=== PATIENT | male | born 1985 | race Caucasian/White ===

== ENCOUNTER 2022-09-15 20:34 | Emergency (ER) | payer BC, MEDICARE ==
[2022-09-15] MEDS ORDERED: Albuterol/Ipratropium 3.0-0.5 MG/3 ML Neb Soln NEB PRN (21:38)
[2022-09-15] MEDS ORDERED: Furosemide 40 MG/4 ML VIAL IVPUSH ONE (22:10)
[2022-09-16] MEDS ORDERED: Aspirin 81 MG Tab.Chew PO ONE (00:33)
[2022-09-16] MEDS ORDERED: Heparin Sodium 5,000 Units/ML Vial IVPUSH ONE (00:33)
[2022-09-16] MEDS ORDERED: Heparin Sodium/D5W 25,000 UNITS/500 ML BAG IV SCH (00:45)
[2022-09-16] MEDS ORDERED: Nitroglycerin/D5W 25 MG/250 ML BOTTLE IV SCH (00:45)
[2022-09-16] MEDS ORDERED: Iopamidol 755 Mg/ML 100 ML Bottle IVPUSH ONE (02:32)
[2022-09-16 02:49] LABS: CORONAVIRUS COVID-19 NAA NEGATIVE (NEGATIVE)
== END 2022-09-16 03:30 ==
LOC: JD.ED 20:34
DX: I27.0 Primary pulmonary hypertension (principal); R06.02 Shortness of breath; R09.02 Hypoxemia; R77.8 Other specified abnormalities of plasma proteins; Z79.899 Other long term (current) drug therapy; Z86.16 Personal history of COVID-19; Z95.5 Presence of coronary angioplasty implant and graft; Z20.822 Contact with and (suspected) exposure to COVID-19
CPT/HCPCS: 0241U; 36415; 71045; 71045-26; 71275; 71275-26; 80053; 82553; 83735; 83880; 84484; 85025; 85610; 85730; 86140; 93005; 93010; 96365; 96366; 96375; 96376; 99285; 99285-25; A9270-GY; J1644; J1940; Q9967

== ENCOUNTER 2023-01-04 01:40 | Emergency (ER) | payer MEDICARE ==
[2023-01-04 02:57] LABS: BASOPHILS ABSOLUTE AUTO 0.01 K/mm3 (0.01-0.08); BASOPHILS PERCENT AUTO 0.1 % (0.1-1.2); EOSINOPHILS PERCENT AUTO 1.2 (0.8-7.0); HEMATOCRIT 43.6 % (40.1-51.0); IMMATURE GRAN ABSOLUTE AUTO 0.02 K/mm3 (0.00-0.10); IMMATURE GRAN PERCENT AUTO 0.2 % (<=1.0); LYMPHOCYTES PERCENT AUTO 19.5 % (21.8-53.1); MEAN CORPUSCULAR HEMOGLOBIN 26.7 pg (25.7-32.2); MEAN CORPUSCULAR HGB CONC 32.8 g/dl (32.2-35.5); MEAN CORPUSCULAR VOLUME 81.3 fl (79.0-92.2); MEAN PLATELET VOLUME 8.5 fl (9.4-12.3); MONOCYTES PERCENT AUTO 8.5 % (5.3-12.2); NEUTROPHILS ABSOLUTE AUTO 5.76 K/mm3 (1.78-5.38); NEUTROPHILS PERCENT AUTO 70.5 % (34.0-67.9); PLATELET COUNT,PLT 265 K/mm3 (163-337); RED BLOOD CELL COUNT 5.36 M/mm3 (4.63-6.08); WHITE BLOOD CELL COUNT,WBC 8.19 K/mm3 (4.23-9.07)
[2023-01-04 03:04] LABS: HEMOGLOBIN 14.3 gm/dl (13.7-17.5)
[2023-01-04 03:25] LABS: A/G RATIO 1.1 (1-2); ALBUMIN 3.1 g/dl (3.4-5.0); ANION GAP 13.1 (5-15); BILIRUBIN TOTAL 0.9 mg/dL (0.2-1.0); BUN/CREATININE RATIO 11.7 (14-18); CALCIUM 8.2 mg/dL (8.5-10.1); CREATININE 1.2 mg/dL (0.7-1.3); EST CRCL DRUG DOSING (CG) 74.58 mL/min; POTASSIUM,K 3.1 mEq/L (3.5-5.1)
[2023-01-04] MEDS ORDERED: Potassium Chloride 20 MEQ Tab.ER PO ONE (04:52)
[2023-01-04] MEDS ORDERED: cefTRIAXone 1 GM in Sodium Chloride 0.9% 100 ML IV ONE (04:52)
[2023-01-04] MEDS ORDERED: Albuterol/Ipratropium 3.0-0.5 MG/3 ML Neb Soln NEB ONE ×2 (04:53→08:35)
[2023-01-04] MEDS ORDERED: Azithromycin 500 MG in Sodium Chloride 0.9% 250 ML IV ONE (05:09)
[2023-01-04] MEDS ORDERED: Albuterol 0.083% 2.5 MG/3 ML Neb Soln NEB ONE (06:43)
[2023-01-04] MEDS ORDERED: methylPREDNISolone Sodium Succinate 125 MG/2 ML SDV IVPUSH ONE (11:28)
== END 2023-01-04 12:41 | disposition critical access hospital (66) ==
LOC: JD.ED 01:40
DX: J18.9 Pneumonia, unspecified organism (principal); I27.0 Primary pulmonary hypertension; Z87.891 Personal history of nicotine dependence
CPT/HCPCS: 36415; 71046; 80053; 83880; 85025; 93005; 94640; 94762; 96365; 96367; 96375; 99285; A9270; J0456; J0696; J2930; J3490; J7050; J7620-GY

== ENCOUNTER 2023-05-04 08:29 | Emergency (ER) | payer BC, MEDICARE, MEDICAID ==
[2023-05-04] MEDS ORDERED: Sodium Chloride 0.9% 10 ML Syringe FLUSH PRN ×2 (08:55→09:55)
[2023-05-04 09:17] LABS: BASOPHILS ABSOLUTE AUTO 0.1 K/mm3 (0.0-0.2); BASOPHILS PERCENT AUTO 0.7 % (0.0-1.0); EOSINOPHILS ABSOLUTE AUTO 0.1 K/mm3 (0.0-0.4); HEMATOCRIT 50.6 % (42.0-52.0); IMMATURE GRAN ABSOLUTE AUTO 0.02 K/mm3 (0.00-0.05); IMMATURE GRAN PERCENT AUTO 0.3 % (0.0-0.4); LYMPHOCYTES ABSOLUTE AUTO 1.3 K/mm3 (1.0-4.8); LYMPHOCYTES PERCENT AUTO 16.9 % (24.0-44.0); MEAN CORPUSCULAR HEMOGLOBIN 25.1 pg (28.0-32.0); MEAN CORPUSCULAR HGB CONC 31.6 g/dl (32.0-36.0); MEAN CORPUSCULAR VOLUME 79.4 fl (83.0-99.0); MONOCYTES ABSOLUTE AUTO 0.7 K/mm3 (0.0-0.8); MONOCYTES PERCENT AUTO 8.5 % (0.0-8.0); NEUTROPHILS ABSOLUTE AUTO 5.6 K/mm3 (1.8-7.7); NEUTROPHILS PERCENT AUTO 72.6 % (41.0-71.0); PLATELET COUNT,PLT 182 K/mm3 (150-400); RED BLOOD CELL COUNT 6.37 M/mm3 (4.52-5.90); WHITE BLOOD CELL COUNT,WBC 7.69 K/mm3 (3.9-11.3)
[2023-05-04 09:34] LABS: A/G RATIO 1.1 (1-2); ALBUMIN 3.8 g/dl (3.4-5.0); ANION GAP 17.8 (5-15); BILIRUBIN TOTAL 1.4 mg/dL (0.2-1.0); BUN/CREATININE RATIO 14.5 (14-18); CALCIUM 9.2 mg/dL (8.5-10.1); CREATININE 1.1 mg/dL (0.7-1.3); EST CRCL DRUG DOSING (CG) 81.36 mL/min; PROTEIN TOTAL,TP 7.3 g/dl (6.4-8.2)
[2023-05-04 09:46] LABS: POTASSIUM,K 3.8 mEq/L (3.5-5.1)
[2023-05-04] MEDS ORDERED: Iopamidol 755 Mg/ML 100 ML Bottle IVPUSH ONE (09:55)
[2023-05-04] MEDS ORDERED: Sodium Chloride 0.9% 100 ML IV SCH (10:00)
[2023-05-04 10:20] LABS: CORONAVIRUS COVID-19 NAA NEGATIVE (NEGATIVE); INFLUENZA A NAA NEGATIVE (NEGATIVE); RESPIRATORY SYNCYTIAL VIR NAA NEGATIVE (NEGATIVE)
== END 2023-05-04 11:37 | disposition home or self-care (01) ==
LOC: JD.ED 08:29
DX: I27.21 Secondary pulmonary arterial hypertension (principal); J18.9 Pneumonia, unspecified organism; R09.02 Hypoxemia; I10 Essential (primary) hypertension; Z86.16 Personal history of COVID-19; Z95.5 Presence of coronary angioplasty implant and graft; Z79.899 Other long term (current) drug therapy
CPT/HCPCS: 0241U; 36415; 71045; 71275; 80053; 84484; 85025; 85379; 93005; 99285; J3490; Q9967; 93010; 99284